=== PATIENT | female | born 1955 | race African-American/Black ===

== ENCOUNTER 2019-08-16 22:43 | Emergency (ER) | payer OTHER ==
[~2019-08-16] VITALS: Ht 157.5 cm; Wt 89.4 kg
--- NOTE | 2019-08-16 23:18 | NUR ---
ED Nurse Note: Walk-in patient with complaints of left ankle injury due to falling from few stairs. patient is accompanied by her family member.
--- NOTE | 2019-08-17 00:13 | Emergency Room Report ---
History of Present Illness General Chief Complaint: Lower Extremity Injury Source: Patient Present Illness HPI Disclaimer: Please note that this report is being documented using DRAGON technology. This can lead to erroneous entry secondary to incorrect interpretation by the dictating instrument. HPI: 63-year-old female presents for evaluation of left ankle and foot pain. Patient slipped walking down the stairs of a deck going down approximately 3 stairs and twisting the left ankle. She was able to bear some weight but notes pain particularly of the midfoot. Slight limitation in range of motion and notes edema around the left ankle. Denies any head injury, loss of consciousness or other injury sustained to the knee, hip, chest or upper extremities. Does not take anticoagulants. No prior history of injury to the extremities. PMH: Hypertension, prediabetes PSH: Denies Allergies: Codeine Social Hx: Daily glass of wine Allergies: Uncoded Allergies: CODEIN (Allergy, Unknown, 08/16/19) Nursing Documentation-PMH Past Medical History: No Stated History Hx Hypertension: Yes Review of Systems All Other Systems: negative except mentioned in HPI Physical Exam Vital Signs Date Time Temp Pulse Resp B/P (MAP) Pulse Ox O2 Delivery O2 Flow Rate FiO2 08/16/19 23:11 99.3 82 18 185/102 (129) 80 Room Air General: Awake and alert, no acute distress HEENT: NC/AT. EOMI. Resp: Normal work of breathing Skin: Intact. No abrasions, laceration or rash over the exposed skin MSK: Moderate edema circumferentially around the left ankle with tenderness to palpation particularly over the midfoot and limitation on dorsiflexion and plantarflexion. Limited eversion and inversion. No obvious tenderness around the lateral or medial malleolus. 2+ DP pulses and good capillary refill distally. Neuro: Awake and alert. Mentating appropriately Medical Decision Making Diagnostic Impression: Primary Impression: Fracture of distal fibula Qualified Codes: S82.832A - Other fracture of upper and lower end of left fibula, initial encounter for closed fracture ER Course Is a 63-year-old female presenting for evaluation after he slipped down several stairs causing pain and swelling to the left foot and ankle. X-rays of the foot and ankle have been ordered to rule out fracture. She will be treated with NSAIDs. Other X-Ray Diagnostic Results Other X-Ray Diagnostic Results #1: X-Ray ordered: Left ankle # of Views/Limited Vs Complete: Complete Indication: Pain EP Interpretation: Yes Interpretation: other - Nondisplaced oblique fracture of the left distal tibia Impression: Other - Distal tibia fracture Electronically Signed by: Electronically signed by Dr. Tree Palumbo Other X-Ray Diagnostic Results #2: X-Ray ordered: Left foot # of Views/Limited Vs Complete: Complete Indication: Pain EP Interpretation: Yes Interpretation: no dislocation, no soft tissue swelling, no fractures, other - No evidence of fracture in the foot. There is the distal fibular fracture seen on ankle x-ray redemonstrated Impression: No acute disease Electronically Signed by: Electronically signed by Dr. Tree Palumbo Reevaluation Time: 00:42 Last Vital Signs Date Time Temp Pulse Resp B/P (MAP) Pulse Ox O2 Delivery O2 Flow Rate FiO2 08/16/19 23:11 99.3 82 18 185/102 (129) 80 Room Air Reevaluation Impression There is an oblique nondisplaced fracture of the left distal fibula. Patient was placed in a short leg splint and discharged to follow-up with orthopedic surgery and her PMD. She will given pain medication and crutches. Instructed on how to use the crutches appropriately as well as need for urgent follow-up with orthopedic surgery. She understands and agrees with this treatment plan will be discharged home. Disposition: HOME, SELF-CARE Condition: Stable Scripts Hydrocodone Bit/Acetaminophen 5-325* (NORCO 5-325*) 1 Each Tablet 1 TAB ORAL Q6H PRN for For Pain, #10 TAB 0 Refills Prov: Tree Palumbo MD 08/17/19 Acetaminophen* (ACETAMINOPHEN 325MG TABLET*) 325 Mg Tablet 650 MG ORAL Q6H PRN for For Pain, #30 TAB Prov: Tree Palumbo MD 08/17/19 Ibuprofen* (MOTRIN*) 600 Mg Tablet 600 MG ORAL Q8H PRN for For Pain, #30 TAB 0 Refills Prov: Tree Palumbo MD 08/17/19 Referrals: NON PHYSICIAN (PCP) Tree Palumbo MD Aug 17, 2019 00:13
[2019-08-17] MEDS ORDERED: NORCO 5-325 TA1 EACH ORAL (00:51)
[2019-08-17] MEDS ORDERED: IBUPROFEN600 MG ORAL (00:51)
[2019-08-17] MEDS ORDERED: ACETAMINOPHEN325 M1 ORAL (00:51)
--- NOTE | 2019-08-17 00:53 | Diagnostic Imaging Report ---
ADDENDUM - Added by Luis Miguel Antoine MD on 08 17 2019 1:13 AM (-07:00) EXAM: XR Left Foot Complete, 3 or More Views CLINICAL HISTORY: INJ TECHNIQUE: Frontal, lateral and oblique views of the left foot. COMPARISON: No relevant prior studies available. FINDINGS: Bones joints: No acute fracture. No dislocation. Calcaneal plantar enthesophytes. Soft tissues: Unremarkable. No radiopaque foreign body. IMPRESSION: No acute osseous abnormalities of the foot. Fracture through the distal fibula is described separately. EXAM: XR Left Foot Complete, 3 or More Views CLINICAL HISTORY: INJ TECHNIQUE: Frontal, lateral and oblique views of the left foot. COMPARISON: No relevant prior studies available. FINDINGS: Bones joints: No acute fracture. No dislocation. Calcaneal plantar enthesophytes. Soft tissues: Unremarkable. No radiopaque foreign body. IMPRESSION: No acute osseous abnormalities.
[2019-08-17] MEDS ORDERED: HYDROcodone/Acetamin 10/325 tab ORAL ONE (01:00)
--- NOTE | 2019-08-17 01:11 | Diagnostic Imaging Report ---
EXAM: XR Left Ankle Complete, 3 or More Views CLINICAL HISTORY: INJ TECHNIQUE: Frontal, lateral and oblique views of the left ankle. COMPARISON: No relevant prior studies available. FINDINGS: Bones joints: Mildly displaced oblique fracture through the distal fibula. Tibia is intact. There appears be mild widening of the medial clear space likely representing mild ankle subluxation. Soft tissues: Diffuse soft tissue swelling. IMPRESSION: Mildly displaced oblique fracture through the distal fibula. There appears be mild widening of the medial clear space likely representing mild ankle subluxation.
--- NOTE | 2019-08-17 01:15 | NUR ---
ED Nurse Note: Patient tolerated splint well.
[2019-08-17 01:24] VITALS: BP 185/102
--- NOTE | 2019-08-17 01:24 | NUR ---
ED Nurse Note: Patient cleared for discharge, verbalized understanding of discharge instructions. Patient ID band removed, patient departed with all belongings accompanied by her friend.
== END 2019-08-17 01:30 | disposition home or self-care (01) ==
LOC: EMR 23:41
DX: S82.832A Other fracture of upper and lower end of left fibula, initial encounter for closed fracture (principal); W10.9XXA Fall (on) (from) unspecified stairs and steps, initial encounter; Y92.9 Unspecified place or not applicable; I10 Essential (primary) hypertension; R73.03 Prediabetes; Z88.6 Allergy status to analgesic agent
CPT/HCPCS: 29515; 73610; 73630; Z7502; 99284

== ENCOUNTER 2019-09-19 14:57 | Emergency (ER) | payer OTHER ==
[~2019-09-19] VITALS: Ht 160 cm; Wt 93.0 kg
[~2019-09-19 14:57] MED LIST: ACETAMINOPHEN325 M1 ORAL; IBUPROFEN600 MG ORAL; NORCO 5-325 TA1 EACH ORAL
[2019-09-19 15:02] VITALS: BP 165/84
--- NOTE | 2019-09-19 15:19 | NUR ---
ED Nurse Note: Pt. AAOX4. ambulatory. pt. walked kin to er from home. Per pt. she had a fracture on her L-ankle x a month ago. Has not seen an ortho for a consult. Pt. is here for an eval of the L-foot. pt. c/o L-foot pain
--- NOTE | 2019-09-19 15:22 | NUR ---
ED Nurse Note: x-ray Addendum: 09/19/19 at 1522 by MARY ELLENO ED Nurse Note: xray at the bedside
--- NOTE | 2019-09-19 15:54 | Emergency Room Report ---
History of Present Illness General Chief Complaint: Pain Source: Patient Present Illness HPI 63-year-old female with history of left ankle fracture x1 month here complaining of worsening pain post fracture. Patient was here at [facility] 1 month ago, was diagnosed with left ankle fracture and splinted. Patient never follow with referral specialist and not complaining of worsening pain. Patient has kept the splint on and reports that she finally saw her primary care physician 3 days ago and has a pending referral to referral specialist. Rating her pain 7 out of 10 without radiation. Denies calf tenderness, chest pain, shortness of breath, palpitation, abdominal pain, nausea vomiting. Denies tingling and numbness. Also is requesting a change of dressing over her splint. Allergies: Coded Allergies: CODEINE (Verified Allergy, Unknown, 09/19/19) Patient History Past Medical History: see triage record Past Surgical History: unable to obtain Pertinent Family History: none Now: No Immunizations: UTD Reviewed Nursing Documentation: PMH: Agreed; PSxH: Agreed Nursing Documentation-PMH Past Medical History: No History, Except For Hx Hypertension: Yes - hyperlipidemia Hx Diabetes: Yes - type 1 Review of Systems All Other Systems: negative except mentioned in HPI Physical Exam Vital Signs Date Time Temp Pulse Resp B/P (MAP) Pulse Ox O2 Delivery O2 Flow Rate FiO2 09/19/19 15:02 98.2 90 19 165/84 98 Room Air Sp02 EP Interpretation: reviewed, normal General Appearance: no apparent distress, alert, GCS 15, non-toxic Head: normocephalic, atraumatic Eyes: bilateral eye normal inspection, bilateral eye PERRL ENT: hearing grossly normal, normal pharynx, no angioedema, normal voice Neck: full range of motion, supple/symm/no masses Respiratory: chest non-tender, lungs clear, normal breath sounds, no wheezing, speaking full sentences Cardiovascular #1: regular rate, rhythm, no edema, no murmur Cardiovascular #2: 2+ dorsalis pedis (R), 2+ dorsalis pedis (L) Gastrointestinal: normal bowel sounds, non tender, soft, non-distended, no guarding, no rebound Genitourinary: no CVA tenderness Musculoskeletal: back normal, decreased range of motion, normal range of motion , other - left ankle placed in splint, neurovascularly intact Neurologic: alert, motor strength/tone normal, oriented x3, sensory intact, responsive, speech normal Psychiatric: judgement/insight normal, memory normal, mood/affect normal, no suicidal/homicidal ideation Skin: no rash Lymphatic: no adenopathy Medical Decision Making PA Attestation Diagnosis and treatment plans were reviewed and discussed with my supervising physician Dr. Lucero Diagnostic Impression: Primary Impression: Left ankle pain ER Course 63-year-old female with history of left ankle fracture x1 month here complaining of worsening pain post fracture. Patient was here at [facility] 1 month ago, was diagnosed with left ankle fracture and splinted. Patient never follow with referral specialist and not complaining of worsening pain. Patient has kept the splint on and reports that she finally saw her primary care physician 3 days ago and has a pending referral to referral specialist. Rating her pain 7 out of 10 without radiation. Denies calf tenderness, chest pain, shortness of breath, palpitation, abdominal pain, nausea vomiting. Denies tingling and numbness. Also is requesting a change of dressing over her splint. Ddx considered but are not limited to: ankle sprain, ankle strain, ankle fracture, ankle contusion Vital signs: are WNL, pt. is afebrile H&PE are most consistent with: Second encounter for ankle fracture ORDERS: ankle x-ray, tylenol(pt did not want any ibuprofen) ED INTERVENTIONS: change of dressing over splint DISCHARGE: At this time pt. is stable for d/c to home. Will provide printed patient care instructions, and any necessary prescriptions. Care plan and follow up instructions have been discussed with the patient prior to discharge. Gave patient contact information to orthopedic urgent care and also follow with referral specialist. If worsening symptoms return to emergency room also given postoperative shoe. Other X-Ray Diagnostic Results Other X-Ray Diagnostic Results : X-Ray ordered: ankle X ray # of Views/Limited Vs Complete: 3 View Indication: Pain EP Interpretation: Yes PA Xray: Interpretation reviewed, by supervising MD, and agrees with findings. Interpretation: no dislocation, other - fx left ankle Impression: Other - existing fx Electronically Signed by: Trinidad LANG Scribe Text IMPRESSION: 1. Limited evaluation of the ankle to the midfoot due to overlying cast. 2. Distal fibular fracture is partly seen. 3. Limited evaluation of the osseous structure. No other definite fracture seen , though may be missed. Last Vital Signs Date Time Temp Pulse Resp B/P (MAP) Pulse Ox O2 Delivery O2 Flow Rate FiO2 09/19/19 15:02 98.2 90 19 165/84 (111) 98 Room Air Disposition: HOME, SELF-CARE Condition: Stable Scripts Acetaminophen (Acetaminophen 8 Hour) 650 Mg Tablet.er 650 MG ORAL Q6H, #30 TAB Prov: Trinidad Sena 09/19/19 Referrals: NON PHYSICIAN (PCP) Patient Instructions: Ankle Fracture With [facility] Additional Instructions: Follow-up with referral specialist, keep postoperative shoe and splint on. If worsening symptoms return to the emergency room Trinidad Sena Sep 19, 2019 15:54
[2019-09-19] MEDS ORDERED: ACETAMINOPHEN650 M2 ORAL (15:55)
[2019-09-19 16:09] VITALS: BP 155/65
--- NOTE | 2019-09-19 16:09 | NUR ---
ER DISCHARGE NOTE: Patient is cleared to be discharged per ERMD, pt is aox4, on room air, with stable vital signs. pt was given dc and prescription instructions, pt was able to verbalize understanding, pt id band removed. pt is able to ambulate with steady gait. pt took all belongings.
--- NOTE | 2019-09-19 16:50 | Diagnostic Imaging Report ---
EXAM: XR Left Foot Complete, 3 or More Views CLINICAL HISTORY: TRAUMA TECHNIQUE: Frontal, lateral and oblique views of the left foot. COMPARISON: Left foot x-ray 08/17/19 FINDINGS: Bones/joints: Limited evaluation of the ankle to the midfoot due to overlying cast. Distal fibular fracture is partly seen. Limited evaluation of the osseous structure. No other definite fracture seen, though may be missed. Small inferior calcaneal spur. No dislocation. Soft tissues: Limited evaluation. No radiopaque foreign body. IMPRESSION: 1. Limited evaluation of the ankle to the midfoot due to overlying cast. 2. Distal fibular fracture is partly seen. 3. Limited evaluation of the osseous structure. No other definite fracture seen, though may be missed.
== END 2019-09-19 16:09 | disposition home or self-care (01) ==
LOC: EMR 15:29
DX: M25.572 Pain in left ankle and joints of left foot (principal); S82.832D Other fracture of upper and lower end of left fibula, subsequent encounter for closed fracture with routine healing; E78.5 Hyperlipidemia, unspecified; E10.9 Type 1 diabetes mellitus without complications; Z88.5 Allergy status to narcotic agent; X58.XXXD Exposure to other specified factors, subsequent encounter
CPT/HCPCS: 73630; Z7502; 99283

== ENCOUNTER 2020-02-13 16:52 | Emergency (ER) | payer OTHER ==
[~2020-02-13] VITALS: Ht 165.1 cm; Wt 86.2 kg
[~2020-02-13 16:52] MED LIST changes: +ACETAMINOPHEN650 M2 ORAL
--- NOTE | 2020-02-13 17:30 | NUR ---
ED Nurse Note: Patient walked in to ER d/t having a cast on LT lower leg. Stated she got the cast in 09/2019 s/p fracture. Pt has not taking off cast since 09/2019. Denies pain, swelling, redness. Patient presented calm, cooperative, AAOx4, VSS at this time.
--- NOTE | 2020-02-13 18:07 | Diagnostic Imaging Report ---
Indication: Leg pain, status post casting 4 months ago Technique: 3 views of the left ankle Comparison: 08/17/2019 Findings: Overlying cast obscures bony detail. Normal bony alignment. On the lateral view, there is a questionable oblique lucency through the distal fibula corresponding in location to the previously demonstrated fracture line. A slight cortical irregularity is equivocally evident on the oblique view both medially and laterally. Impression: Previously demonstrated distal fibular fracture, in plaster., Probably at least partially healed, but inconclusive as regards degree of healing due to overlying plaster cast.
--- NOTE | 2020-02-13 18:15 | NUR ---
ED Nurse Note: Afterray was done, cast was removed, patient tolerated procedure well.
--- NOTE | 2020-02-13 18:22 | Emergency Room Report ---
History of Present Illness General Chief Complaint: Lower Extremity Injury Source: Patient Present Illness HPI 64-year-old female presents for cast removal. Has had a cast on her left leg since September 2019. Has been unable to follow-up with orthopedics because of coronavirus. States she would like to have the cast removed. Denies any pain. Denies any swelling. No other aggravating relieving factors. Denies any other associated symptoms Allergies: Coded Allergies: CODEINE (Verified Allergy, Unknown, 09/19/19) COVID-19 Screening Contact w/high risk pt: No Recent Travel to affected area: No Experienced COVID-19 symptoms?: No Patient History Past Medical History: DM Past Surgical History: none Pertinent Family History: none Social History: Denies: smoking, alcohol use, drug use Now: No Immunizations: UTD Reviewed Nursing Documentation: PMH: Agreed; PSxH: Agreed Nursing Documentation-PMH Hx Hypertension: Yes - hyperlipidemia Hx Diabetes: Yes - type 1 Review of Systems All Other Systems: negative except mentioned in HPI Physical Exam Vital Signs Date Time Temp Pulse Resp B/P (MAP) Pulse Ox O2 Delivery O2 Flow Rate FiO2 02/13/20 17:16 98.1 100 18 166/73 (104) 90 Room Air Sp02 EP Interpretation: reviewed, normal General Appearance: no apparent distress, alert, GCS 15, non-toxic Head: normocephalic Eyes: bilateral eye normal inspection, bilateral eye PERRL ENT: normal ENT inspection Neck: normal inspection Respiratory: normal inspection Cardiovascular #1: normal inspection Gastrointestinal: normal inspection Rectal: deferred Genitourinary: no CVA tenderness Musculoskeletal: back normal, normal range of motion, gait/station normal, non- tender Neurologic: alert, motor strength/tone normal, oriented x3, sensory intact, responsive, speech normal Psychiatric: normal inspection Skin: no rash Lymphatic: normal inspection Procedures Splinting Splinting : Consent: Verbal Splint: poserior short Pre-Proc Neuro Vasc Exam: normal Post-Proc Neuro Vasc Exam: normal Patient Tolerated: Well Complications: None Medical Decision Making Diagnostic Impression: Primary Impression: Fracture of distal fibula Qualified Codes: S82.832D - Other fracture of upper and lower end of left fibula, subsequent encounter for closed fracture with routine healing Additional Impression: Cast removal ER Course Hospital Course 64 yo F presents requesting cast removal. s/p distal fibula fx 07/2019 Differential diagnoses include: Fracture, dislocation, sprain, contusion Clinical course Patient placed on stretcher. After initial history and physical, I ordered Xrays of L ankle xray shows what appears to be a healing distal fibula fracture compared to x- rays from July 2019. ED encounter patient was seen by orthopedics. Placed in cast. Unable to follow -up due to clinic closures due to coronavirus. Discussed with orthopedics. Agreed that patient does not require casting at this point. Cast removed with cast saw. Patient has no pain and full range of motion in the left ankle. Placed in posterior splint. Will provide orthopedic referrals. Diagnosis - fracture of distal fibula, cast removal Stable and discharged to home. apply ice, keep elevated. weight bear as tolerated. Followup with ortho. Return to ED if symptoms recur or worsen Other X-Ray Diagnostic Results Other X-Ray Diagnostic Results : X-Ray ordered: L ankle # of Views/Limited Vs Complete: 3 View Indication: Pain EP Interpretation: Yes Interpretation: no dislocation, no soft tissue swelling, other - healing distal fibula fx Impression: Other - healing distal fibula fx Electronically Signed by: Electronically signed by Lino Alberto MD Last Vital Signs Date Time Temp Pulse Resp B/P (MAP) Pulse Ox O2 Delivery O2 Flow Rate FiO2 02/13/20 17:16 98.1 100 18 166/73 (104) 90 Room Air Status: improved Disposition: HOME, SELF-CARE Referrals: Mark Negrete MD [facility] Open 24 hour /7 days a week by Appointment Only [address] [facility] [address] [facility] [address] Patient Instructions: Fibular Ankle Fracture Treated With or Without Immobilization, Adult Lino Alberto MD Feb 13, 2020 18:22
[2020-02-13 18:47] VITALS: BP 166/73
--- NOTE | 2020-02-13 18:48 | NUR ---
ED Nurse Note: Pt cleared by health care Provider for discharge. DC instructions/prescription was given and explained to pt and verbalized understanding of teachings. All medical deviecs such as ID band removed. Pt is AAO x4, ambulatory and left with all personal belongings.
== END 2020-02-13 18:49 | disposition home or self-care (01) ==
LOC: EMR 17:21
DX: S82.832D Other fracture of upper and lower end of left fibula, subsequent encounter for closed fracture with routine healing (principal); X58.XXXD Exposure to other specified factors, subsequent encounter; E78.5 Hyperlipidemia, unspecified; E10.8 Type 1 diabetes mellitus with unspecified complications; Z88.6 Allergy status to analgesic agent
CPT/HCPCS: 29515; 73610; Z7502; 99283